=== PATIENT | male | born 1950 | race Caucasian/White ===

== ENCOUNTER → 2016-10-20 | Outpatient (CLI) | payer BC, OTHER | LOC: RAD 08:21 | PROVIDERS: ATTEND Urology | DX: C61 Malignant neoplasm of prostate (principal) | CPT/HCPCS: 78306; A9503; Q9969 ==

== ENCOUNTER → 2019-05-20 | Outpatient (CLI) | payer MEDICARE, BC | LOC: SP 09:01 | PROVIDERS: ATTEND Preventive Medicine Undersea and Hyperbaric Medicine | DX: E11.621 Type 2 diabetes mellitus with foot ulcer (principal); L97.522 Non-pressure chronic ulcer of other part of left foot with fat layer exposed | CPT/HCPCS: 93922; 93925 ==

== ENCOUNTER 2020-07-05 13:50 | Inpatient (IN) | payer MEDICARE, BC ==
--- NOTE | 2020-07-05 14:15 | ER Document Report ---
ED Medical Screen (RME) - General Stated Complaint: SORE ON LEFT FOOT Time Seen by Provider: 07/05/20 14:13 Primary Care Provider: KIMBERLY ZAZUETA DPM [Primary Care Provider] - Follow up as needed Notes: HPI: 69-year-old diabetic male who has been following with Dr. Zazueta regarding a wound on the left heel over the last 3 to 4 weeks. Patient had the area incised and opened 3 weeks ago. They felt like the infection was getting better but ov er the last several days after seeing Dr. Zazueat he was referred back to the ER for evaluation because apparently they feel the wound is becoming more infected and worse. He has had subjective fevers at home PHYSICAL EXAMINATION: There does appear to be an ulcerative type wound on the heel of the left foot with some surrounding erythema I have greeted and performed a rapid initial assessment of this patient. A comprehensive ED assessment and evaluation of the patient, analysis of test results and completion of medical decision making process will be conducted by an additional ED providers. TRAVEL OUTSIDE OF THE [place] IN LAST 30 DAYS: No Doctor's Discharge - Discharge Referrals: KIMBERLY ZAZUETA DPM [Primary Care Provider] - Follow up as needed
[2020-07-05 15:53] LABS: ABSOLUTE BASOPHILS # (AUTO) 0.1 10^3/uL (0.0-0.2); ABSOLUTE EOSINOPHILS # (AUTO) 0.1 10^3/uL (0.0-0.6); ABSOLUTE LYMPHOCYTES (AUTO) 1.6 10^3/uL (0.5-4.7); ABSOLUTE MONOCYTES (AUTO) 1.1 10^3/uL (0.1-1.4); ABSOLUTE NEUT (AUTO) 12.3 10^3/uL (1.7-8.2); BASOPHILS % (AUTO) 0.5 % (0-2); EOSINOPHILS % (AUTO) 0.5 % (0-6); HEMATOCRIT 35.4 % (37.9-51.0); HEMOGLOBIN 11.4 g/dL (13.5-17.0); LYMPHOCYTES % (AUTO) 10.8 % (13-45); MEAN CORPUSCULAR HEMOGLOBIN 27.4 pg (27.0-33.4); MEAN CORPUSCULAR HGB CONC 32.3 g/dL (32.0-36.0); MEAN CORPUSCULAR VOLUME 85 fl (80-97); PLATELET COUNT 402 10^3/uL (150-450); RED BLOOD COUNT 4.16 10^6/uL (4.35-5.55); RED CELL DISTRIBUTION WIDTH 14.5 % (11.5-14.0); SEGMENTED NEUTROPHILS % (AUTO) 81.2 % (42-78); TOTAL CELLS COUNTED % (AUTO) 100 %; WHITE BLOOD COUNT 15.1 10^3/uL (4.0-10.5)
--- NOTE | 2020-07-05 15:56 | RADIOLOGY REPORT (SQ) ---
EXAM DESCRIPTION: FOOT LEFT COMPLETE IMAGES COMPLETED DATE/TIME: 07/05/2020 3:18 pm REASON FOR STUDY: left heel wound COMPARISON: None. NUMBER OF VIEWS: Three views. TECHNIQUE: AP, lateral and oblique radiographic images acquired of the left foot. LIMITATIONS: None. FINDINGS: MINERALIZATION: Normal. BONES: Chronic fracture of the 2nd metatarsal. There is no acute fracture, dislocation or erosion. JOINTS: The normal tarsometatarsal alignment is preserved. SOFT TISSUES: No radiopaque foreign body or subcutaneous emphysema. OTHER: Enthesophytes at the calcaneal insertions of the plantar fascia and Achilles tendon. The Achi lles tendon silhouette is intact. IMPRESSION: No acute osseous abnormality of the left foot. TECHNICAL DOCUMENTATION: JOB ID: [id number] 2010 [employer]- All Rights Reserved Reading location - IP/workstation name: [email or web address]
[2020-07-05 16:13] LABS: ALKALINE PHOSPHATASE 102 U/L (38-126); ANION GAP 12 (5-19); ASPARTATE AMINO TRANSFERASE 23 U/L (17-59); BILIRUBIN,DIRECT 0.3 mg/dL (0.0-0.4); BILIRUBIN,TOTAL 0.5 mg/dL (0.2-1.3); BLOOD UREA NITROGEN 35 mg/dL (7-20); C-REACTIVE PROTEIN 50.2 mg/L (<10.0); CALCIUM 9.2 mg/dL (8.4-10.2); CARBON DIOXIDE 23 mmol/L (22-30); CHLORIDE 93 mmol/L (98-107); POTASSIUM 4.9 mmol/L (3.6-5.0); TOTAL PROTEIN 7.6 g/dL (6.3-8.2)
[2020-07-05 16:20] LABS: GLUCOSE 505 mg/dL (75-110)
[2020-07-05 16:48] LABS: ERYTHROCYTE SEDIMENTATION RATE 99 mm/hr (0-20)
[2020-07-05] MEDS ORDERED: NORMAL SALINE 1000 ML 1,000 ML IV ONE (20:50)
[2020-07-05] MEDS ORDERED: ONDANSETRON HCL INJ/PF 4 MG/2 ML SDV IV ONE (20:50)
[2020-07-05] MEDS ORDERED: LINEZOLID 600 MG/300 ML RTUPB IV ONE (20:54)
[2020-07-05] MEDS ORDERED: INSULIN LISPRO 100 UNIT/ML 3 ML VIAL SUBCUT ONE (20:55)
--- NOTE | 2020-07-05 21:07 | ER Document Report ---
ED General - General Chief Complaint: Abscess Stated Complaint: SORE ON LEFT FOOT Time Seen by Provider: 07/05/20 14:13 Primary Care Provider: KIMBERLY ZAZUETA DPM [Primary Care Provider] - Follow up as needed Notes: 69-year-old male history of hypertension hyperlipidemia diabetes prostate cancer in remission presents with approximately 1 week of worsening left foot wound. Patient says he noticed the left heel ulcer approximately 3 to 4 weeks ago and started seeing Dr. Zazueta. Had surgical debridement in his office approximately 3 weeks ago and has been on antibiotics (unknown which) for the past [address] Zazueta again today and was told that he needs to go to the hospital for IV antibiotics and possible debridement because ulcer was worsening and was infected despite antibiotics. Patient had endorsed subjective fever in triage, but at time of my evaluation says that he "gets hot sometimes "and that has been the case for the past several years without any acute change. Patient has chronic dry cough for many years although also without any acute change recently and sometimes vomits when he coughs and had one episode of emesis in the ED after coughing, but this is patient's normal pattern for the past several years which also endorses. Patient endorses increasing pain at ulcer. Denies any symptoms elsewhere, headache, abdominal pain, objective fever, shortness of breath, chest pain, dizziness, recent hospitalizations TRAVEL OUTSIDE OF THE [place] IN LAST 30 DAYS: No - Related Data Allergies/Adverse Reactions: No Known Allergies Allergy (Verified 07/05/20 17:39) Home Medications: pt states he uses relo on baer Past Medical History - General Information source: Patient, Relative, [facility] Records - Social History Smoking Status: Never Smoker Chew tobacco use (# tins/day): No Frequency of alcohol use: None Drug Abuse: None Family History: Reviewed & Not Pertinent Patient has homicidal ideation: No Review of Systems - Review of Systems Notes: REVIEW OF SYSTEMS: CONSTITUTIONAL : Denies fever, weight loss EENT: Denies recent cold symptoms, denies throat pain CARDIOVASCULAR: Denies chest pain, LEVON RESPIRATORY: Denies sputum, denies shortness of breath. GASTROINTESTINAL: Denies abdominal pain, bowel changes GENITOURINARY: Denies difficulty urinating, painful urination. MUSCULOSKELETAL: Denies neck pain, back pain. SKIN: + rash or skin lesions. HEMATOLOGIC : Denies easy bruising or bleeding. LYMPHATIC: Denies swollen, enlarged glands. NEUROLOGICAL: Denies headache, denies change in gait. PSYCHIATRIC: Denies anxiety or stress or depression. Physical Exam - Vital signs Vitals: Temp Pulse Resp BP Pulse Ox 98.5 F 80 16 170/91 H 99 07/05/20 14:15 07/05/20 14:15 07/05/20 14:15 07/05/20 14:15 07/05/20 14:15 - Notes Notes: PHYSICAL EXAMINATION: GENERAL: Comfortable appearing elderly man lying in bed in no acute distress HEAD: Atraumatic, normocephalic. EYES: Pupils equal round and appropriate constriction, sclera anicteric, conjunctiva are normal. ENT: nares patent, mildly dry mucous membranes. NECK/BACK: Normal range of motion, supple without lymphadenopathy, no midline spinal tenderness or deformity LUNGS: Breath sounds clear to auscultation bilaterally and equal. No wheezes rales or rhonchi. HEART: Regular rate and rhythm with faint systolic murmur ABDOMEN: Soft, nontender, no guarding, no masses, no CVAT EXTREMITIES: Normal range of motion, no pitting or edema. No cyanosis. NEUROLOGICAL: Awake, alert, conversing appropriately, moves all extremities spontaneously. PSYCH: Normal mood, normal affect. SKIN: Warm, Dry, DP pulses palpable bilaterally with 2-second capillary refill bilaterally, approximately 3 cm white heel eschar on left foot with surrounding erythema abnormal warmth spreading to lateral surface of foot Course - Re-evaluation Re-evalutation: 07/05/20 21:17 Patient with infected diabetic left heel ulcer with failed outpatient p.o. antibiotic trial of 2 weeks, he will evaluated by invasive cardiologist who recommends debridement and IV antibiotics as per patient and , signs of infection on exam. No signs of abscess but will have surgical evaluation for likely debridement, rule out osteomyelitis. Patient's glucose elevated but no altered mental status and no elevated anion gap, will treat for hyperglycemia. Patient's creatinine elevated but unknown baseline, last measurement was normal but 5 years ago, and patient and deny any known renal history. Ordered linezolid because of patient's renal function and have presented patient to hospitalist Dr. Selby. 07/05/20 22:03 Patient accepted to medical floor by Dr. Selby. - Vital Signs Vital signs: Temp Pulse Resp BP Pulse Ox 99.2 F 80 19 175/84 H 97 07/05/20 17:42 07/05/20 14:15 07/05/20 18:02 07/05/20 18:02 07/05/20 18:02 - Laboratory Result Diagrams: 07/05/20 15:33 07/05/20 15:33 Laboratory results interpreted by me: 07/05/20 07/05/20 15:33 15:33 WBC 15.1 H RBC 4.16 L Hgb 11.4 L Hct 35.4 L RDW 14.5 H Lymph % (Auto) 10.8 L Absolute Neuts (auto) 12.3 H Seg Neutrophils % 81.2 H ESR 99 H Sodium 128.2 L Chloride 93 L BUN 35 H Creatinine 2.31 H Est GFR ( Amer) 34 L Est GFR (MDRD) Non-Af 28 L Glucose 505 H* C-Reactive Protein 50.2 H Discharge - Discharge Clinical Impression: Hyperglycemia, Renal insufficiency Foot ulcer, left Qualifiers: Non-pressure ulcer stage: with other severity Qualified Code(s): L97.528 - Non- pressure chronic ulcer of other part of left foot with other specified severity Disposition: ADMITTED INPATIENT [facility] Medical [facility] Referrals: KIMBERLY ZAZUETA DPM [Primary Care Provider] - Follow up as needed
[2020-07-05] MEDS ORDERED: ONDANSETRON HCL INJ/PF 4 MG/2 ML SDV IV PRN (21:50)
[2020-07-05] MEDS ORDERED: ACETAMINOPHEN 325 MG TABLET PO PRN (21:50)
[2020-07-05] MEDS ORDERED: RINGERS SOLUTION,LACTATED 1,000 ML IV PRN (21:50)
[2020-07-05] MEDS ORDERED: DEXTROSE 50%-WATER 25 GM/50 ML DISP.SYRIN IV PRN ×2 (22:00)
[2020-07-05] MEDS ORDERED: DEXTROSE 40% GEL 15 GM TUBE PO PRN ×2 (22:00)
[2020-07-05] MEDS ORDERED: VANCOMYCIN HCL 0 MG in DEXTROSE 5%-WATER 250 ML IV NR (22:00)
[2020-07-05] MEDS ORDERED: GLUCAGON,HUMAN RECOMB 1 MG INJ IM PRN (22:00)
--- NOTE | 2020-07-05 22:03 | PDOC H&P ---
History of Present Illness Admission Date/PCP: KIMBERLY MONROY DPM Patient complains of: left heal ulcer and pain History of Present Illness: FREDDY CANTU is a 69 year old male with a history of type 2 diabetes, hypertension, history of prostate cancer now presents with 3 weeks duration of nonhealing wound on the left heel area. Patient was initially seen by p odiatrist and was being followed at wound care clinic and he was also treated with oral antibiotic as outpatient but the fail to improve and the past few days it started worsening. This morning patient was seen at wound clinic and he was sent to the ER for possible IV antibiotic treatment. He reports 8/10 intensity dull aching pain on his lower extremity which is aggravated by pressure and walking. He denies any fever, nausea, vomiting. He also denies any chest pain, shortness of breath, abdominal pain, change in his bowel or urinary habits. He denies any recent sick contact history. Social History Information Source: Patient Lives with: Family Smoking Status: Never Smoker Electronic Cigarette use?: No Hx Recreational Drug Use: No Drugs: None - Advance Directive Resuscitation Status: Full Code Family History Family History: Reviewed & Not Pertinent Parental Family History Reviewed: Yes Children Family History Reviewed: Yes Sibling(s) Family History Reviewed.: Yes Medication/Allergy Allergies/Adverse Reactions: No Known Allergies Allergy (Verified 07/05/20 17:39) Review of Systems Constitutional: ABSENT: chills, fever(s), headache(s), weight gain, weight loss Eyes: ABSENT: visual disturbances Ears: ABSENT: hearing changes Cardiovascular: ABSENT: chest pain, dyspnea on exertion, edema, orthropnea, palpitations Respiratory: ABSENT: cough, hemoptysis Gastrointestinal: ABSENT: abdominal pain, constipation, diarrhea, hematemesis, hematochezia, nausea, vomiting Genitourinary: ABSENT: dysuria, hematuria Musculoskeletal: ABSENT: joint swelling Integumentary: ABSENT: rash, wounds Neurological: ABSENT: abnormal gait, abnormal speech, confusion, dizziness, focal weakness, syncope Psychiatric: ABSENT: anxiety, depression, homidical ideation, suicidal ideation Endocrine: ABSENT: cold intolerance, heat intolerance, polydipsia, polyuria Hematologic/Lymphatic: ABSENT: easy bleeding, easy bruising Physical Exam Vital Signs: Temp Pulse Resp BP Pulse Ox 99.2 F 80 19 175/84 H 97 07/05/20 17:42 07/05/20 14:15 07/05/20 18:02 07/05/20 18:02 07/05/20 18:02 Intake & Output 07/04/20 07/05/20 07/06/20 06:59 06:59 06:59 Weight 78.5 kg Additional comments: GENERAL APPEARANCE: Alert and oriented x3, in no acute distress HEENT: Normocephalic and atraumatic. No scleral icterus. Moist oral mucosa NECK: Supple. No lymphadenopathy or tenderness. No JVD CHEST: Symmetric. Nontender to palpation. LUNGS: Clear with good air entry bilaterally. No wheezing or crackles HEART: Regular rate and rhythm with normal S1 and S2. No murmurs, gallops, or rubs. ABDOMEN: Flat, soft, active bowel sounds, no direct or rebound tenderness. No organomegaly detected. EXTREMITIES: No cyanosis, clubbing, or edema. There is a 1 x 1 cm wound on the left heel. There is surrounding purulence area with hyperemia, differential warmth and tenderness. MUSCULOSKELETAL: No deformity, atrophy or swelling noted PSYCHIATRIC: Recent and remote memory is intact. Appropriate mood and affect. SKIN: Warm, dry, and well perfused. No lesions or rashes are noted. NEUROLOGIC: No focal sensory or motor deficits are noted. Results Laboratory Results: 07/05/20 15:33 07/05/20 15:33 07/05/20 07/05/20 07/05/20 15:33 15:33 15:33 WBC 15.1 H RBC 4.16 L Hgb 11.4 L Hct 35.4 L MCV 85 MCH 27.4 MCHC 32.3 RDW 14.5 H Plt Count 402 Seg Neutrophils % 81.2 H Sodium 128.2 L Potassium 4.9 Chloride 93 L Carbon Dioxide 23 Anion Gap 12 BUN 35 H Creatinine 2.31 H Est GFR ( Amer) 34 L Glucose 505 H* Lactic Acid 1.1 Calcium 9.2 Total Bilirubin 0.5 AST 23 Alkaline Phosphatase 102 C-Reactive Protein 50.2 H Total Protein 7.6 Albumin 4.0 Impressions: Foot X-Ray 07/05/20 14:14 IMPRESSION: No acute osseous abnormality of the left foot. Assessment and Plan - Diagnosis (1) Foot ulcer, left Qualifiers: Non-pressure ulcer stage: with other severity Qualified Code(s): L97.528 - Non-pressure chronic ulcer of other part of left foot with other specified severity Is this a current diagnosis for this admission?: Yes Plan: Presents with a nonhealing left heel wound with surrounding purulent cellulitis Failed outpatient treatments Has no systemic signs of toxicity ESR and C-reactive protein elevated X-ray showed no osseous abnormality Wound consult has been placed Continue vancomycin renally dosed with cefepime Follow-up with blood culture (2) Type 2 diabetes mellitus with hyperglycemia Is this a current diagnosis for this admission?: Yes Plan: Random blood sugar was 505 on presentation Has no anion gap Started him on Lantus 45 units nightly Sliding-scale insulin, hypoglycemia protocol with Accu-Chek (3) Renal insufficiency Is this a current diagnosis for this admission?: Yes Plan: Has no baseline to compare it with Could be CKD due to hypertension and diabetes Started him on gentle hydration Renally dose medications and avoid nephrotoxic's Monitor renal indicis (4) Hypertension Is this a current diagnosis for this admission?: Yes Plan: Blood pressure is within acceptable range Continue home medications - Time Time Spent with patient: 35 or more minutes Total Critical Time (Minutes): 45 Medications reviewed and adjusted accordingly: Yes Anticipated Discharge Disposition: Home, Self Care Anticipated Discharge Timeframe: within 72 hours - Inpatient Certification Based on my medical assessment, after consideration of the patient's comorbidities, presenting symptoms, or acuity I expect that the services needed warrant INPATIENT care.: Yes I certify that my determination is in accordance with my understanding of Medicare's requirements for reasonable and necessary INPATIENT services [42 CFR 412.3e].: Yes Medical Necessity: Failure to Improve With Outpatient Therapy, Need Close Monitoring Due to Risk of Patient Decompensation, Need For IV Fluids, Need for IV Antibiotics, Risk of Complication if Not Cared For in Hospital Post Hospital Care: D/C or Transfer Summary
[2020-07-05] MEDS ORDERED: VANCOMYCIN HCL INJ 1000 MG VIAL IV PRN (22:14)
[2020-07-05] MEDS ORDERED: VANCOMYCIN HCL 1,500 MG in DEXTROSE 5%-WATER 250 ML IV ONE (22:15)
[2020-07-05] MEDS: INSULIN REG, HUMAN 100 UNIT/ML 3 ML VIAL (PYX) SUBCUT SCH (22:26)
[2020-07-05] MEDS: FAMOTIDINE 20 MG TABLET PO SCH (22:34)
[2020-07-05] MEDS: HEPARIN SOD (PORCINE) 5,000 UNIT/ML 1 ML VIAL SUBCUT SCH (22:34)
[2020-07-05] MEDS: INSULIN GLARGINE,HUM.REC.ANLOG 1,000 UNIT/10 ML VIAL SUBCUT SCH (22:34)
[2020-07-05] MEDS: CEFEPIME 1 GM/D5W RTU 1 GM/50 ML RTUPB IV SCH (23:42)
[2020-07-06] MEDS ORDERED: VANCOMYCIN HCL INJ 1000 MG VIAL ONE (00:31)
[2020-07-06] MEDS ORDERED: VANCOMYCIN HCL INJ 500 MG VIAL ONE (00:31)
[2020-07-06] MEDS: RINGERS SOLUTION,LACTATED 1,000 ML IV PRN ×2 (02:45→21:24)
[2020-07-06] MEDS: HEPARIN SOD (PORCINE) 5,000 UNIT/ML 1 ML VIAL SUBCUT SCH ×3 (05:10→21:17)
[2020-07-06 06:17] LABS: ABSOLUTE BASOPHILS # (AUTO) 0.1 10^3/uL (0.0-0.2); ABSOLUTE EOSINOPHILS # (AUTO) 0.1 10^3/uL (0.0-0.6); ABSOLUTE LYMPHOCYTES (AUTO) 2.3 10^3/uL (0.5-4.7); ABSOLUTE MONOCYTES (AUTO) 1.1 10^3/uL (0.1-1.4); ABSOLUTE NEUT (AUTO) 9.6 10^3/uL (1.7-8.2); BASOPHILS % (AUTO) 0.6 % (0-2); HEMATOCRIT 29.9 % (37.9-51.0); LYMPHOCYTES % (AUTO) 17.3 % (13-45); MEAN CORPUSCULAR HEMOGLOBIN 27.5 pg (27.0-33.4); MEAN CORPUSCULAR HGB CONC 33.4 g/dL (32.0-36.0); MEAN CORPUSCULAR VOLUME 82 fl (80-97); MONOCYTES % (AUTO) 8.4 % (3-13); PLATELET COUNT 317 10^3/uL (150-450); RED BLOOD COUNT 3.62 10^6/uL (4.35-5.55); RED CELL DISTRIBUTION WIDTH 14.3 % (11.5-14.0); SEGMENTED NEUTROPHILS % (AUTO) 72.7 % (42-78); TOTAL CELLS COUNTED % (AUTO) 100 %; WHITE BLOOD COUNT 13.1 10^3/uL (4.0-10.5)
[2020-07-06 06:37] LABS: ANION GAP 9 (5-19); BLOOD UREA NITROGEN 30 mg/dL (7-20); CALCIUM 8.8 mg/dL (8.4-10.2); CARBON DIOXIDE 23 mmol/L (22-30); CHLORIDE 102 mmol/L (98-107); GLUCOSE 179 mg/dL (75-110); POTASSIUM 4.2 mmol/L (3.6-5.0)
[2020-07-06] MEDS: INSULIN REG, HUMAN 100 UNIT/ML 3 ML VIAL (PYX) SUBCUT SCH ×4 (08:57→21:18)
[2020-07-06] MEDS: FAMOTIDINE 20 MG TABLET PO SCH ×2 (09:58→21:16)
[2020-07-06] MEDS: CEFEPIME 1 GM/D5W RTU 1 GM/50 ML RTUPB IV SCH ×2 (09:58→21:28)
[2020-07-06] MEDS: VANCOMYCIN HCL 1,000 MG in DEXTROSE 5%-WATER 250 ML IV SCH (09:59)
--- NOTE | 2020-07-06 14:17 | PDOC PROGRESS REPORT ---
Subjective Date:: 07/06/20 Subjective:: Patient is resting comfortably in bed. He has no specific complaints this jose carlos luke. Reason For Visit: PURULENT CELLULITIS,DIABETIC FOOT ULCER, Physical Exam Vital Signs: Temp Pulse Resp BP Pulse Ox 97.9 F 65 18 198/81 H 100 07/06/20 11:04 07/06/20 11:04 07/06/20 11:04 07/06/20 11:04 07/06/20 11:04 Intake & Output 07/05/20 07/06/20 07/07/20 06:59 06:59 06:59 Intake Total 1350 Balance 1350 Weight 75.4 kg 75.4 kg General appearance: PRESENT: no acute distress, cooperative, well-developed Head exam: PRESENT: atraumatic, normocephalic Eye exam: PRESENT: conjunctiva pink, EOMI. ABSENT: scleral icterus Ear exam: PRESENT: normal external ear exam. ABSENT: bleeding, drainage Respiratory exam: PRESENT: clear to auscultation [place], symmetrical, unlabored. ABSENT: rales, rhonchi, tachypnea, wheezes Cardiovascular exam: PRESENT: RRR, +S1, +S2. ABSENT: bradycardia, diastolic murmur, irregular rhythm, systolic murmur, tachycardia GI/Abdominal exam: PRESENT: normal bowel sounds, soft. ABSENT: distended, guarding, tenderness Rectal exam: PRESENT: deferred Gentrourinary exam: ABSENT: indwelling catheter Extremities exam: PRESENT: other - The patient has a heel ulcer with callus. Patient palpated centimeters. The discharge can be expressed with gentle pressure over the discolored area.. ABSENT: pedal edema Musculoskeletal exam: PRESENT: ambulatory. ABSENT: deformity, dislocation Neurological exam: PRESENT: alert, awake, oriented to person, oriented to place, oriented to time, oriented to situation, CN II-XII grossly intact. ABSENT: altered Psychiatric exam: PRESENT: appropriate affect. ABSENT: agitated, anxious Focused psych exam: ABSENT: delusional, paranoid, restlessness Results Laboratory Results: 07/06/20 05:07 07/06/20 05:07 07/05/20 07/05/20 07/05/20 15:33 15:33 15:33 WBC 15.1 H RBC 4.16 L Hgb 11.4 L Hct 35.4 L MCV 85 MCH 27.4 MCHC 32.3 RDW 14.5 H Plt Count 402 Seg Neutrophils % 81.2 H Sodium 128.2 L Potassium 4.9 Chloride 93 L Carbon Dioxide 23 Anion Gap 12 BUN 35 H Creatinine 2.31 H Est GFR ( Amer) 34 L Glucose 505 H* Lactic Acid 1.1 Calcium 9.2 Total Bilirubin 0.5 AST 23 Alkaline Phosphatase 102 C-Reactive Protein 50.2 H Total Protein 7.6 Albumin 4.0 07/06/20 07/06/20 05:07 05:07 WBC 13.1 H RBC 3.62 L Hgb 10.0 L Hct 29.9 L MCV 82 MCH 27.5 MCHC 33.4 RDW 14.3 H Plt Count 317 Seg Neutrophils % 72.7 Sodium 134.2 L Potassium 4.2 Chloride 102 Carbon Dioxide 23 Anion Gap 9 BUN 30 H Creatinine 2.24 H Est GFR ( Amer) 36 L Glucose 179 H Lactic Acid Calcium 8.8 Total Bilirubin AST Alkaline Phosphatase C-Reactive Protein Total Protein Albumin Impressions: Foot X-Ray 07/05/20 14:14 IMPRESSION: No acute osseous abnormality of the left foot. Assessment and Plan - Diagnosis (1) Foot ulcer, left Qualifiers: Non-pressure ulcer stage: with other severity Qualified Code(s): L97.528 - Non-pressure chronic ulcer of other part of left foot with other specified severity Is this a current diagnosis for this admission?: Yes (2) Type 2 diabetes mellitus with hyperglycemia Qualifiers: Diabetes mellitus intermediate card tender insulin use: with intermediate card tender use Qualified Code(s): E11.65 - Type 2 diabetes mellitus with hyperglycemia; Z79.4 - snf (current) use of insulin Is this a current diagnosis for this admission?: Yes (3) Renal insufficiency Is this a current diagnosis for this admission?: Yes (4) Hypertension Qualifiers: Hypertension type: essential hypertension Qualified Code(s): I10 - Essential (primary) hypertension Is this a current diagnosis for this admission?: Yes - Plan Summary Summary: 07/06/2020 The also has a callused portion and then there is a small tunnel to a subcutaneous collection purulent discharge. You can milk discharge from this area that is expressible at the side of the ulcer. We will likely need to unroofed this area, aggressively cleanse and then use medicated dressings. Hypertension-continue the valsartan with hydrochlorothiazide Diabetes-Lantus started at 50 units. Metformin 1 g twice daily and glimepiride continued. Continue Accu-Cheks and sliding scale. Renal insufficiency-continue lactated Ringer's and recheck labs tomorrow. - Time Time Spent with patient: 15-24 minutes Medications reviewed and adjusted accordingly: Yes Anticipated Discharge Disposition: Home with Home Health Anticipated Discharge Timeframe: within 72 hours
[2020-07-06] MEDS ORDERED: VALSARTAN 80 MG TABLET PO ONE (21:00)
[2020-07-06] MEDS: VALSARTAN 160 MG TABLET PO SCH (21:15)
[2020-07-06] MEDS: HYDROCHLOROTHIAZIDE 12.5 MG TABLET PO SCH (21:16)
[2020-07-06] MEDS: INSULIN GLARGINE,HUM.REC.ANLOG 1,000 UNIT/10 ML VIAL SUBCUT SCH (21:17)
[2020-07-06] MEDS ORDERED: [UNRECOGNIZED DRUG - OTHER] SUBCUT SCH (22:00)
[2020-07-06] MEDS ORDERED: INSULIN GLARGINE HUM REC ANLOG 300 UNIT/ML SUBCUT SCH (22:00)
[2020-07-06] MEDS ORDERED: INSULN SUBCUT SCH (22:00)
--- NOTE | 2020-07-06 23:51 | CDI QUERY ---
CDI Query CDI Review: We are seeking further clarification of documentation to reflect the severity of illness of your patient. Noted in the H&P: (3) Renal insufficiency Is this a current diagnosis for this admission?: Yes Plan: Has no baseline to compare it with Could be CKD due to hypertension and diabetes Started him on gentle hydration Renally dose medications and avoid nephrotoxic's Monitor renal indicis BUN/ CR: 35 /2.31 GFR: 28 Glucose: 505 Per Progress Notes: Renal insufficiency-continue lactated Ringer's and recheck labs tomorrow. Based on your medical judgement, can you further clarify in the Progress Notes and carry through the Discharge Summary: Acute Kidney Injury Acute Kidney Injury 2/2 to ATN Acute on Chronic Renal Failure Chronic Kidney Disease (Stage, if known) Other (please specify) None of the above / Not applicable Thank you for your consideration. SAUL PenaN RN Clinical [employer] Supervisor Physician Advisor
--- NOTE | 2020-07-07 00:03 | CDI QUERY ---
CDI Query CDI Review: We are seeking further clarification of documentation to reflect the severity of illness of your patient. Per ED Notes: Patient with infected diabetic left heel ulcer with failed outpatient p.o. antibiotic trial of 2 weeks, Per H&P: (1) Foot ulcer, left Qualifiers: Non-pressure ulcer stage: with other severity Qualified Code(s): L97.528 - Non-pressure chronic ulcer of other part of left foot with other specified severity Is this a current diagnosis for this admission?: Yes Plan: Presents with a nonhealing left heel wound with surrounding purulent cellulitis Failed outpatient treatments Has no systemic signs of toxicity ESR and C-reactive protein elevated X-ray showed no osseous abnormality Wound consult has been placed Continue vancomycin renally dosed with cefepime Follow-up with blood culture (2) Type 2 diabetes mellitus with hyperglycemia Is this a current diagnosis for this admission?: Yes Plan: Random blood sugar was 505 on presentation Per Progress Notes: Reason For Visit: PURULENT CELLULITIS,DIABETIC FOOT ULCER, Based on your medical judgement, can you further clarify in the Progress Notes and carry through the Discharge Summary: Non-healing wound and cellulitis 2/2 to diabetes Non-healing wound and cellulitis NOT 2/2 to diabetes Unable to determine Other Thank you for your consideration. LINDA Pena RN Clinical Tax Accountant Physician Advisor
[2020-07-07] MEDS: HEPARIN SOD (PORCINE) 5,000 UNIT/ML 1 ML VIAL SUBCUT SCH ×3 (05:36→22:24)
[2020-07-07 06:26] LABS: ABSOLUTE BASOPHILS # (AUTO) 0.1 10^3/uL (0.0-0.2); ABSOLUTE EOSINOPHILS # (AUTO) 0.2 10^3/uL (0.0-0.6); ABSOLUTE LYMPHOCYTES (AUTO) 3.1 10^3/uL (0.5-4.7); ABSOLUTE MONOCYTES (AUTO) 1.3 10^3/uL (0.1-1.4); ABSOLUTE NEUT (AUTO) 8.4 10^3/uL (1.7-8.2); BASOPHILS % (AUTO) 0.6 % (0-2); EOSINOPHILS % (AUTO) 1.5 % (0-6); HEMATOCRIT 31.2 % (37.9-51.0); HEMOGLOBIN 10.5 g/dL (13.5-17.0); LYMPHOCYTES % (AUTO) 23.4 % (13-45); MEAN CORPUSCULAR HEMOGLOBIN 27.6 pg (27.0-33.4); MEAN CORPUSCULAR HGB CONC 33.5 g/dL (32.0-36.0); MEAN CORPUSCULAR VOLUME 82 fl (80-97); PLATELET COUNT 335 10^3/uL (150-450); RED BLOOD COUNT 3.78 10^6/uL (4.35-5.55); RED CELL DISTRIBUTION WIDTH 14.3 % (11.5-14.0); SEGMENTED NEUTROPHILS % (AUTO) 64.5 % (42-78); TOTAL CELLS COUNTED % (AUTO) 100 %; WHITE BLOOD COUNT 13.1 10^3/uL (4.0-10.5)
[2020-07-07] MEDS: RINGERS SOLUTION,LACTATED 1,000 ML IV PRN ×2 (06:45→22:25)
[2020-07-07 06:46] LABS: ALBUMIN 3.2 g/dL (3.5-5.0); ANION GAP 9 (5-19); BLOOD UREA NITROGEN 26 mg/dL (7-20); CARBON DIOXIDE 24 mmol/L (22-30); CHLORIDE 103 mmol/L (98-107); GLUCOSE 84 mg/dL (75-110); PHOSPHORUS 3.8 mg/dL (2.5-4.5); POTASSIUM 4.2 mmol/L (3.6-5.0)
[2020-07-07] MEDS: INSULIN REG, HUMAN 100 UNIT/ML 3 ML VIAL (PYX) SUBCUT SCH ×4 (07:49→22:32)
[2020-07-07] MEDS: METFORMIN HCL 500 MG TABLET PO SCH ×2 (08:13→16:53)
[2020-07-07] MEDS: OXYCODONE-ACETAMINOPHEN 5-325 MG TABLET PO PRN ×2 (08:14→22:31)
[2020-07-07] MEDS: HYDROCHLOROTHIAZIDE 12.5 MG TABLET PO SCH (09:51)
[2020-07-07] MEDS: VALSARTAN 160 MG TABLET PO SCH (09:51)
[2020-07-07] MEDS: FAMOTIDINE 20 MG TABLET PO SCH ×2 (09:51→22:25)
[2020-07-07] MEDS: CEFEPIME 1 GM/D5W RTU 1 GM/50 ML RTUPB IV SCH ×2 (09:52→22:24)
[2020-07-07] MEDS: GLIMEPIRIDE 4 MG TABLET PO SCH (09:52)
[2020-07-07] MEDS ORDERED: (PENDING PHARMACY ID) (Valsartan/Hydrochlorothiazide [Valsartan-Hctz 160-12.5 Mg Tab] 1 EA PO SCH (10:00)
[2020-07-07] MEDS: VANCOMYCIN HCL 1,000 MG in DEXTROSE 5%-WATER 250 ML IV SCH (11:06)
--- NOTE | 2020-07-07 12:05 | PDOC PROGRESS REPORT ---
Subjective Date:: 07/07/20 Subjective:: Patient does feel like there is some swelling. There does seem to be a slight e xtension of discoloration towards the lateral heel. Blood pressures have been elevated. Reason For Visit: PURULENT CELLULITIS,DIABETIC FOOT ULCER, Physical Exam Vital Signs: Temp Pulse Resp BP Pulse Ox 98.6 F 86 16 185/89 H 98 07/07/20 08:19 07/07/20 07:45 07/07/20 07:45 07/07/20 07:45 07/07/20 07:45 Intake & Output 07/06/20 07/07/20 07/08/20 06:59 06:59 06:59 Intake Total 1350 3888 50 Output Total 1975 Balance 1350 1913 50 Weight 75.4 kg 75.5 kg General appearance: PRESENT: no acute distress, cooperative, well-developed Head exam: PRESENT: atraumatic, normocephalic Eye exam: PRESENT: conjunctiva pink. ABSENT: scleral icterus Ear exam: PRESENT: normal external ear exam. ABSENT: bleeding, drainage Mouth exam: PRESENT: moist, tongue midline Respiratory exam: PRESENT: clear to auscultation keyana, symmetrical, unlabored. ABSENT: accessory muscle use, rales, rhonchi, tachypnea, wheezes Cardiovascular exam: PRESENT: RRR, +S1, +S2. ABSENT: bradycardia, diastolic murmur, irregular rhythm, systolic murmur, tachycardia GI/Abdominal exam: PRESENT: normal bowel sounds, soft. ABSENT: tenderness Rectal exam: PRESENT: deferred Gentrourinary exam: ABSENT: indwelling catheter Extremities exam: ABSENT: pedal edema Musculoskeletal exam: PRESENT: dislocation - Across the heel. ABSENT: deformity, normal inspection - Ulceration on the left heel Neurological exam: PRESENT: alert, awake, oriented to person, oriented to place, oriented to time, oriented to situation, CN II-XII grossly intact. ABSENT: altered Psychiatric exam: PRESENT: appropriate affect. ABSENT: agitated, anxious Focused psych exam: ABSENT: delusional, paranoid, restlessness Skin exam: PRESENT: other - Discoloration on the heel as noted above Results Laboratory Results: 07/07/20 05:53 07/07/20 05:53 07/07/20 07/07/20 05:53 05:53 WBC 13.1 H RBC 3.78 L Hgb 10.5 L Hct 31.2 L MCV 82 MCH 27.6 MCHC 33.5 RDW 14.3 H Plt Count 335 Seg Neutrophils % 64.5 Sodium 135.7 L Potassium 4.2 Chloride 103 Carbon Dioxide 24 Anion Gap 9 BUN 26 H Creatinine 2.20 H Est GFR ( Amer) 36 L Glucose 84 Calcium 9.0 Phosphorus 3.8 Albumin 3.2 L Impressions: Foot X-Ray 07/05/20 14:14 IMPRESSION: No acute osseous abnormality of the left foot. Assessment and Plan - Diagnosis (1) Type 2 diabetes mellitus with hyperglycemia Qualifiers: Diabetes mellitus long term care social worker insulin use: with nursing home use Qualified Code (s): E11.65 - Type 2 diabetes mellitus with hyperglycemia; Z79.4 - exterminator helper termite (current) use of insulin Is this a current diagnosis for this admission?: Yes (2) Hypertension Qualifiers: Hypertension type: essential hypertension Qualified Code(s): I10 - Essential (primary) hypertension Is this a current diagnosis for this admission?: Yes (3) Acute kidney injury Is this a current diagnosis for this admission?: Yes (4) Diabetic ulcer of left heel Qualifiers: Diabetes mellitus type: type 2 Non-pressure ulcer stage: unspecified non- pressure ulcer stage Qualified Code(s): E11.621 - Type 2 diabetes mellitus with foot ulcer; L97.429 - Non-pressure chronic ulcer of left heel and midfoot with unspecified severity Is this a current diagnosis for this admission?: Yes (5) Abscess of left heel Is this a current diagnosis for this admission?: Yes - Plan Summary Summary: 07/06/2020 The also has a callused portion and then there is a small tunnel to a subcutaneous collection purulent discharge. You can milk discharge from this area that is expressible at the side of the ulcer. We will likely need to unroo fed this area, aggressively cleanse and then use medicated dressings. Hypertension-continue the valsartan with hydrochlorothiazide Diabetes-Lantus started at 50 units. Metformin 1 g twice daily and glimepiride continued. Continue Accu-Cheks and sliding scale. Renal insufficiency-continue lactated Ringer's and recheck labs tomorrow. 07/07/2020 Acute kidney injury improving with hydration Diabetic ulcer of the left heel with abscess-MRI showed that the left calcaneus is not involved and there is no osteomyelitis. There is the abscess that drains to the skin. Continue antibiotics. We will look to unroofed the abscess in order for complete drainage and better treatment tomorrow Accu-Cheks still not well controlled. Increase Lantus. Hypertension-not well controlled on the patient's reported dose of medication. I have increased the valsartan to 320 mg daily, the hydrochlorothiazide is not 25 mg daily and I have added 10 mg amlodipine. There will also be hydralazine available by IV if needed. - Time Time Spent with patient: 15-24 minutes Medications reviewed and adjusted accordingly: Yes Anticipated Discharge Disposition: Home, Self Care Anticipated Discharge Timeframe: within 72 hours
[2020-07-07] MEDS ORDERED: AMLODIPINE BESYLATE 5 MG TABLET PO ONE (18:00)
--- NOTE | 2020-07-07 19:11 | RADIOLOGY REPORT (SQ) ---
EXAM DESCRIPTION: MRI LT LOWER EXTREMITY WITHOUT IMAGES COMPLETED DATE/TIME: 07/07/2020 2:11 pm COMPARISON: Left foot radiograph, 07/05/2020 TECHNIQUE: Multiplanar imaging of the left hind foot to include fat and fluid sensitive sequences. LIMITATIONS: None. FINDINGS: BONE MARROW: There is very mild bone marrow edema at the plantar calcaneal spur near the i nsertion of the plantar fascia with no significant T1 abnormality, consistent with edema rather than fracture or osteomyelitis. Otherwise normal bone marrow signal. SOFT TISSUES: Diffuse subcutaneous edema/ fluid in the calcaneal plantar soft tissues. There is foca l fluid at the skin surface measuring about 6 mm with direct drainage to the skin. Thickening and ab normal signal at the insertion of the plantar fascia. Subcutaneous edema in the midfoot. OTHER: No other significant finding. IMPRESSION: 1. Subcutaneous interstitial fluid in the plantar calcaneal soft tissues with draining abscess to the skin surface. No focal drainable fluid collection. No evidence of osteomyelitis. 2. Thickening of the plantar fascia consistent with plantar fasciitis. 3. Reactive bone marrow edema in the calcaneus. TECHNICAL DOCUMENTATION: JOB ID: [id number] [employer]- All Rights Reserved REASON FOR STUDY: Assess for osteomyelitis left heel Assess for osteomyelitis left heel. Debridement. Draining infection, redness, swelling, burning. S ymptoms for 3-4 weeks. Reading location - IP/workstation name: [email or web address]
[2020-07-07] MEDS ORDERED: HYDRALAZINE HCL INJ/PF 20 MG/1 ML SDV IV PRN (21:31)
[2020-07-07] MEDS ORDERED: INSULIN GLARGINE,HUM.REC.ANLOG 1,000 UNIT/10 ML VIAL (PYX) SUBCUT ONE (22:00)
[2020-07-08] MEDS: HEPARIN SOD (PORCINE) 5,000 UNIT/ML 1 ML VIAL SUBCUT SCH ×3 (05:54→21:30)
[2020-07-08] MEDS: OXYCODONE-ACETAMINOPHEN 5-325 MG TABLET PO PRN ×2 (05:56→21:30)
[2020-07-08 06:34] LABS: ABSOLUTE BASOPHILS # (AUTO) 0.1 10^3/uL (0.0-0.2); ABSOLUTE EOSINOPHILS # (AUTO) 0.2 10^3/uL (0.0-0.6); ABSOLUTE LYMPHOCYTES (AUTO) 2.6 10^3/uL (0.5-4.7); ABSOLUTE MONOCYTES (AUTO) 1.2 10^3/uL (0.1-1.4); ABSOLUTE NEUT (AUTO) 8.5 10^3/uL (1.7-8.2); BASOPHILS % (AUTO) 0.5 % (0-2); EOSINOPHILS % (AUTO) 1.3 % (0-6); HEMATOCRIT 30.1 % (37.9-51.0); HEMOGLOBIN 9.9 g/dL (13.5-17.0); LYMPHOCYTES % (AUTO) 20.9 % (13-45); MEAN CORPUSCULAR HEMOGLOBIN 27.6 pg (27.0-33.4); MEAN CORPUSCULAR VOLUME 84 fl (80-97); MONOCYTES % (AUTO) 9.5 % (3-13); PLATELET COUNT 332 10^3/uL (150-450); RED CELL DISTRIBUTION WIDTH 14.1 % (11.5-14.0); SEGMENTED NEUTROPHILS % (AUTO) 67.8 % (42-78); TOTAL CELLS COUNTED % (AUTO) 100 %; WHITE BLOOD COUNT 12.6 10^3/uL (4.0-10.5)
[2020-07-08 06:56] LABS: ALBUMIN 3.2 g/dL (3.5-5.0); ANION GAP 12 (5-19); BLOOD UREA NITROGEN 26 mg/dL (7-20); CALCIUM 8.8 mg/dL (8.4-10.2); CARBON DIOXIDE 22 mmol/L (22-30); CHLORIDE 103 mmol/L (98-107); GLUCOSE 92 mg/dL (75-110); PHOSPHORUS 3.9 mg/dL (2.5-4.5); POTASSIUM 4.4 mmol/L (3.6-5.0)
[2020-07-08] MEDS: INSULIN REG, HUMAN 100 UNIT/ML 3 ML VIAL (PYX) SUBCUT SCH ×4 (07:27→21:17)
[2020-07-08] MEDS ORDERED: LIDOCAINE 1% INJ-PF (10 MG/ML) 30 ML SDV INFIL ONE (08:30)
[2020-07-08 08:31] LABS: ERYTHROCYTE SEDIMENTATION RATE 120 mm/hr (0-20)
[2020-07-08] MEDS: METFORMIN HCL 500 MG TABLET PO SCH ×2 (08:43→15:44)
[2020-07-08] MEDS ORDERED: AMLODIPINE BESYLATE 5 MG TABLET PO SCH ×2 (10:00)
[2020-07-08] MEDS: CEFEPIME 1 GM/D5W RTU 1 GM/50 ML RTUPB IV SCH ×2 (10:03→21:30)
[2020-07-08] MEDS: AMLODIPINE BESYLATE 10 MG TABLET PO SCH (10:04)
[2020-07-08] MEDS: FAMOTIDINE 20 MG TABLET PO SCH ×2 (10:04→21:29)
[2020-07-08] MEDS: HYDROCHLOROTHIAZIDE 25 MG TABLET PO SCH (10:04)
[2020-07-08] MEDS: GLIMEPIRIDE 4 MG TABLET PO SCH (10:04)
[2020-07-08] MEDS: VALSARTAN 160 MG TABLET PO SCH (10:04)
[2020-07-08] MEDS: VANCOMYCIN HCL 1,000 MG in DEXTROSE 5%-WATER 250 ML IV SCH (10:36)
[2020-07-08] MEDS: RINGERS SOLUTION,LACTATED 1,000 ML IV PRN (13:22)
--- NOTE | 2020-07-08 20:51 | PDOC PROGRESS REPORT ---
Subjective Date:: 07/08/20 Subjective:: Patient is resting in bed. Anticipating debridement of the heel lesion. No com plaints at this time. Reason For Visit: PURULENT CELLULITIS,DIABETIC FOOT ULCER, Physical Exam Vital Signs: Temp Pulse Resp BP Pulse Ox 97.6 F 71 19 141/66 H 98 07/08/20 15:00 07/08/20 15:00 07/08/20 15:00 07/08/20 15:00 07/08/20 15:00 Intake & Output 07/07/20 07/08/20 07/09/20 06:59 06:59 06:59 Intake Total 3888 3295 980 Output Total 1975 4025 900 Balance 1913 -730 80 Weight 75.5 kg 76.2 kg 76.2 kg General appearance: PRESENT: no acute distress, cooperative, well-developed Head exam: PRESENT: atraumatic, normocephalic Eye exam: PRESENT: conjunctiva pink. ABSENT: scleral icterus Ear exam: PRESENT: normal external ear exam. ABSENT: bleeding, drainage Mouth exam: PRESENT: moist, tongue midline Respiratory exam: PRESENT: clear to auscultation keyana, symmetrical, unlabored. ABSENT: accessory muscle use, rales, rhonchi, tachypnea, wheezes Cardiovascular exam: PRESENT: RRR, +S1, +S2. ABSENT: bradycardia, diastolic murmur, irregular rhythm, systolic murmur, tachycardia GI/Abdominal exam: PRESENT: normal bowel sounds, soft. ABSENT: distended, guarding, tenderness Rectal exam: PRESENT: deferred Gentrourinary exam: ABSENT: indwelling catheter Extremities exam: PRESENT: other - Slight swelling lateral aspect of the left heel with associated erythema Musculoskeletal exam: PRESENT: ambulatory. ABSENT: deformity, dislocation Neurological exam: PRESENT: alert, awake, oriented to person, oriented to place, oriented to time, oriented to situation, CN II-XII grossly intact. ABSENT: altered Psychiatric exam: PRESENT: appropriate affect. ABSENT: agitated, anxious Focused psych exam: ABSENT: delusional, paranoid, restlessness Skin exam: PRESENT: erythema - Lateral aspect of the left heel, other - The callused tissue left heel as well Results Laboratory Results: 07/08/20 05:49 07/08/20 05:49 07/08/20 07/08/20 05:49 05:49 WBC 12.6 H RBC 3.60 L Hgb 9.9 L Hct 30.1 L MCV 84 MCH 27.6 MCHC 33.0 RDW 14.1 H Plt Count 332 Seg Neutrophils % 67.8 Sodium 136.9 L Potassium 4.4 Chloride 103 Carbon Dioxide 22 Anion Gap 12 BUN 26 H Creatinine 2.30 H Est GFR ( Amer) 34 L Glucose 92 Calcium 8.8 Phosphorus 3.9 Albumin 3.2 L Impressions: Foot X-Ray 07/05/20 14:14 IMPRESSION: No acute osseous abnormality of the left foot. Lower Extremity MRI 07/07/20 00:00 IMPRESSION: 1. Subcutaneous interstitial fluid in the plantar calcaneal soft tissues with draining abscess to the skin surface. No focal drainable fluid collection. No evidence of osteomyelitis. 2. Thickening of the plantar fascia consistent with plantar fasciitis. 3. Reactive bone marrow edema in the calcaneus. Assessment and Plan - Diagnosis (1) Type 2 diabetes mellitus with hyperglycemia Qualifiers: Diabetes mellitus care home insulin use: with legal administrator use Qualified Code(s): E11.65 - Type 2 diabetes mellitus with hyperglycemia; Z79.4 - donor center technician (current) use of insulin Is this a current diagnosis for this admission?: Yes (2) Hypertension Qualifiers: Hypertension type: essential hypertension Qualified Code(s): I10 - Essential (primary) hypertension Is this a current diagnosis for this admission?: Yes (3) Acute kidney injury Is this a current diagnosis for this admission?: Yes (4) Diabetic ulcer of left heel Qualifiers: Diabetes mellitus type: type 2 Non-pressure ulcer stage: unspecified non-pressure ulcer stage Qualified Code(s): E11.621 - Type 2 diabetes mellitus with foot ulcer; L97.429 - Non-pressure chronic ulcer of left heel and midfoot with unspecified severity Is this a current diagnosis for this admission?: Yes (5) Abscess of left heel Is this a current diagnosis for this admission?: Yes - Plan Summary Summary: 07/06/2020 The also has a callused portion and then there is a small tunnel to a subcutaneous collection purulent discharge. You can milk discharge from this area that is expressible at the side of the ulcer. We will likely need to unroofed this area, aggressively cleanse and then use medicated dressings. Hypertension-continue the valsartan with hydrochlorothiazide Diabetes-Lantus started at 50 units. Metformin 1 g twice daily and glimepiride continued. Continue Accu-Cheks and sliding scale. Renal insufficiency-continue lactated Ringer's and recheck labs tomorrow. 07/07/2020 Acute kidney injury improving with hydration Diabetic ulcer of the left heel with abscess-MRI showed that the left calcaneus is not involved and there is no osteomyelitis. There is the abscess that drains to the skin. Continue antibiotics. We will look to unroofed the abscess in order for complete drainage and better treatment tomorrow Accu-Cheks still not well controlled. Increase Lantus. Hypertension-not well controlled on the patient's reported dose of medication. I have increased the valsartan to 320 mg daily, the hydrochlorothiazide is not 25 mg daily and I have added 10 mg amlodipine. There will also be hydralazine available by IV if needed. 07/08/2020 Blood pressures are better with adjustment in medication. Improved glucose control with increased dose of Lantus Continue antibiotics for the left heel abscess Acute kidney injury slightly plateaued. Will increase IV fluids The sed rate is slightly higher. We will continue to monitor. - Time Time Spent with patient: Less than 15 minutes Medications reviewed and adjusted accordingly: Yes Anticipated Discharge Disposition: Home with Home Health Anticipated Discharge Timeframe: within 72 hours
--- NOTE | 2020-07-08 20:58 | Operative Report ---
Bedside Procedure - History of Present Illness History of Present Illness: FREDDY CANTU is a 69 year old male with a history of type 2 diabetes, hypertension, history of prostate cancer now presents with 3 weeks duration of nonhealing wound on the left heel area. Patient was initially seen by manager coding and was being followed at wound care clinic and he was also treated with oral antibiotic as outpatient but the fail to improve and the past few days it started worsening. This morning patient was seen at wound clinic and he was sent to the ER for possible IV antibiotic treatment. He reports 8/10 intensity dull aching pain on his lower extremity which is aggravated by pressure and walking. He denies any fever, nausea, vomiting. He also denies any chest pain, shortness of breath, abdominal pain, change in his bowel or urinary habits. He denies any recent sick contact history. Indication for Procedure: Abscess possibly associated with left diabetic heel ulcer Date: 07/08/20 Provider: TITA DISLA - Incision and Drainage Left Lateral Foot Time completed: 18:30 Type: Simple Anesthetic type: 1% Lidocaine Blade size: 11 Needle Size: Other I&D procedure: Betadine prep applied, Iodoform packing placed Incision Method: Incision made by scalpel Amount/type of drainage: Minimal Notes: 07/08/20 20:56 Patient tolerated the procedure without difficulty 07/08/20 20:57 Lesion was lateral aspect of the left heel. MRI also showed plantar fasciitis. Will reassess in the morning.
[2020-07-08] MEDS: INSULIN GLARGINE,HUM.REC.ANLOG 1,000 UNIT/10 ML VIAL SUBCUT SCH (21:30)
[2020-07-09] MEDS: RINGERS SOLUTION,LACTATED 1,000 ML IV PRN ×3 (01:24→18:33)
[2020-07-09] MEDS: HEPARIN SOD (PORCINE) 5,000 UNIT/ML 1 ML VIAL SUBCUT SCH ×3 (05:16→21:53)
[2020-07-09 06:16] LABS: ABSOLUTE BASOPHILS # (AUTO) 0.1 10^3/uL (0.0-0.2); ABSOLUTE EOSINOPHILS # (AUTO) 0.1 10^3/uL (0.0-0.6); ABSOLUTE LYMPHOCYTES (AUTO) 2.4 10^3/uL (0.5-4.7); ABSOLUTE MONOCYTES (AUTO) 1.1 10^3/uL (0.1-1.4); ABSOLUTE NEUT (AUTO) 7.5 10^3/uL (1.7-8.2); BASOPHILS % (AUTO) 1.1 % (0-2); EOSINOPHILS % (AUTO) 1.3 % (0-6); HEMATOCRIT 33.7 % (37.9-51.0); HEMOGLOBIN 11.1 g/dL (13.5-17.0); LYMPHOCYTES % (AUTO) 21.5 % (13-45); MEAN CORPUSCULAR HEMOGLOBIN 27.7 pg (27.0-33.4); MEAN CORPUSCULAR HGB CONC 32.9 g/dL (32.0-36.0); MEAN CORPUSCULAR VOLUME 84 fl (80-97); MONOCYTES % (AUTO) 10.1 % (3-13); PLATELET COUNT 357 10^3/uL (150-450); RED BLOOD COUNT 3.99 10^6/uL (4.35-5.55); RED CELL DISTRIBUTION WIDTH 14.5 % (11.5-14.0); TOTAL CELLS COUNTED % (AUTO) 100 %; WHITE BLOOD COUNT 11.3 10^3/uL (4.0-10.5)
[2020-07-09 06:36] LABS: ALBUMIN 3.5 g/dL (3.5-5.0); ANION GAP 10 (5-19); BLOOD UREA NITROGEN 24 mg/dL (7-20); CALCIUM 9.2 mg/dL (8.4-10.2); CARBON DIOXIDE 24 mmol/L (22-30); CHLORIDE 103 mmol/L (98-107); GLUCOSE 73 mg/dL (75-110); PHOSPHORUS 4.3 mg/dL (2.5-4.5); POTASSIUM 4.4 mmol/L (3.6-5.0)
[2020-07-09 06:53] LABS: ERYTHROCYTE SEDIMENTATION RATE 107 mm/hr (0-20)
[2020-07-09] MEDS: INSULIN REG, HUMAN 100 UNIT/ML 3 ML VIAL (PYX) SUBCUT SCH ×4 (07:33→21:44)
[2020-07-09] MEDS: METFORMIN HCL 500 MG TABLET PO SCH ×2 (08:41→17:21)
[2020-07-09] MEDS: HYDROCHLOROTHIAZIDE 25 MG TABLET PO SCH (09:17)
[2020-07-09] MEDS: AMLODIPINE BESYLATE 10 MG TABLET PO SCH (09:17)
[2020-07-09] MEDS: OXYCODONE-ACETAMINOPHEN 5-325 MG TABLET PO PRN ×3 (09:17→23:50)
[2020-07-09] MEDS: VALSARTAN 160 MG TABLET PO SCH (09:18)
[2020-07-09] MEDS: GLIMEPIRIDE 4 MG TABLET PO SCH (09:18)
[2020-07-09] MEDS: CEFEPIME 1 GM/D5W RTU 1 GM/50 ML RTUPB IV SCH ×2 (09:19→21:52)
[2020-07-09] MEDS: FAMOTIDINE 20 MG TABLET PO SCH ×2 (09:19→21:54)
[2020-07-09 10:32] LABS: VANCOMYCIN,TROUGH 13.1 ug/mL (5.0-20.0)
[2020-07-09] MEDS: VANCOMYCIN HCL 1,000 MG in DEXTROSE 5%-WATER 250 ML IV SCH (10:57)
--- NOTE | 2020-07-09 15:13 | PDOC CONSULTATION ---
Consultation Consult Date: 07/09/20 Provider Consulted: SHANNON WHITAKER Consult reason:: Persistent severe pains over the left heel post I&D yesterday History of Present Illness Admission Date/PCP: 07/05/20 22:18 KIMBERLY MONROY DPM History of Present Illness: FREDDY CANTU is a 69 year old male diabetic who was been complaining of pains along the left heel for the past 3 weeks. Initially seen at his instructor weaving office and subsequently sent to the wound care center where he was placed on p.o. antibiotics. Patient was seen last on 07/07/2020 and subsequently sent to the ED for admission for possible IV antibiotics. Yesterday hospitalist did an I&D of the left heel with minimal drainage. Today patient still has redness and pains along the left heel and surgery is being consulted. Past Medical History Psychiatric Medical History: Denies: Depression Social History Lives with: Family Smoking Status: Never Smoker Electronic Cigarette use?: No Hx Recreational Drug Use: No Drugs: None Hx Prescription Drug Abuse: No - Advance Directive Resuscitation Status: Full Code Family History Family History: Reviewed & Not Pertinent Parental Family History Reviewed: Yes Children Family History Reviewed: No Sibling(s) Family History Reviewed.: No Medication/Allergy Home Medications: Glimepiride [Amaryl 4 mg Tablet] 4 mg PO DAILY 07/06/20 Insulin Glargine,Hum.rec.anlog [Meka Padilla] 60 units SUBCUT Q12 MDD 120 UNITS 07/06/20 Saxagliptin HCl/Metformin HCl [Kombiglyze Xr 2.5-1,000 mg Tab] 1 tab PO BID 07/06/20 Valsartan/Hydrochlorothiazide [Valsartan-Hctz 160-12.5 mg Tab] 1 tab PO DAILY 07/06/20 Allergies/Adverse Reactions: No Known Allergies Allergy (Verified 07/05/20 17:39) Review of Systems Constitutional: PRESENT: other - Denies fever fever no chills Musculoskeletal: PRESENT: other - Left heel pains post I&D Physical Exam Vital Signs: Temp Pulse Resp BP Pulse Ox 98.6 F 74 17 159/71 H 99 07/09/20 11:14 07/09/20 11:14 07/09/20 11:14 07/09/20 11:14 07/09/20 11:14 Intake & Output 07/08/20 07/09/20 07/10/20 06:59 06:59 06:59 Intake Total 3295 2550 1780 Output Total 4025 2650 600 Balance -730 -100 1180 Weight 76.2 kg 77.8 kg Exam: The left heel noted to have redness with the previous incision and drainage in wound. No evidence of abscess. No drainage on squeezing around the area and no swelling or fluctuation noted. However, I could not feel a pulse on the left posterior tibial artery or dorsalis pedis artery in the left ankle but has +2 left popliteal artery palpable pulse. He has normal right dorsalis pedis artery pulse. Results Laboratory Results: 07/09/20 05:50 07/09/20 05:50 07/09/20 07/09/20 05:50 05:50 WBC 11.3 H RBC 3.99 L Hgb 11.1 L Hct 33.7 L MCV 84 MCH 27.7 MCHC 32.9 RDW 14.5 H Plt Count 357 Seg Neutrophils % 66.0 Sodium 137.4 Potassium 4.4 Chloride 103 Carbon Dioxide 24 Anion Gap 10 BUN 24 H Creatinine 2.39 H Est GFR ( Amer) 33 L Glucose 73 L Calcium 9.2 Phosphorus 4.3 Albumin 3.5 Impressions: Foot X-Ray 07/05/20 14:14 IMPRESSION: No acute osseous abnormality of the left foot. Lower Extremity MRI 07/07/20 00:00 IMPRESSION: 1. Subcutaneous interstitial fluid in the plantar calcaneal soft tissues with draining abscess to the skin surface. No focal drainable fluid collection. No evidence of osteomyelitis. 2. Thickening of the plantar fascia consistent with plantar fasciitis. 3. Reactive bone marrow edema in the calcaneus. Assessment & Plan - Diagnosis (1) Abscess of left heel Is this a current diagnosis for this admission?: Yes (2) Acute kidney injury Is this a current diagnosis for this admission?: Yes (3) Diabetic ulcer of left heel Qualifiers: Diabetes mellitus type: type 2 Non-pressure ulcer stage: unspecified non- pressure ulcer stage Qualified Code(s): E11.621 - Type 2 diabetes mellitus with foot ulcer; L97.429 - Non-pressure chronic ulcer of left heel and midfoot with unspecified severity Is this a current diagnosis for this admission?: Yes (4) Type 2 diabetes mellitus with hyperglycemia Qualifiers: Diabetes mellitus alf insulin use: with intermediate manager use Qualified Code(s): E11.65 - Type 2 diabetes mellitus with hyperglycemia; Z79.4 - terminal operations supervisor (current) use of insulin Is this a current diagnosis for this admission?: Yes (5) Severe arterial insufficiency of left lower extremity Is this a current diagnosis for this admission?: Yes - Time Time Spent: 30 to 50 Minutes Anticipated discharge: Home Anticipated DC Timeframe: Other - 1 week - Inpatient Certification Medical Necessity: Need for IV Antibiotics - Plan Summary Plan Summary: Is a 69-year-old male with type 2 diabetes noted to have a wound in the left heel noted 3 weeks ago and followed at the wound care center. He was sent to the hospital on 07/07/2020 from the wound care center for IV antibiotics therapy. Yesterday the left heel was drained with minimal drainage by the hospitalist. Today patient still complaining of a lot of pains with redness along the left heel incision site. The left heel is red with no further drainage or any views abscess. However patient has severe arterial insufficiency of the left ankle and foot because I could not feel up palpable pulse on the left ankle. However there is palpable left popliteal artery pulse and he has a very good right dorsalis pedis artery palpable pulse. Impression: Cellulitis of the left heel post IND. Severe arterial insufficiency left lower leg Type 2 diabetes mellitus with markedly elevated blood sugar of over 500 on admission. Recommendations: Continue IV antibiotics Arterial Doppler study of the left leg Will need urgent vascular evaluation, especially if there is no improvement in the next 24 to 48hours.
--- NOTE | 2020-07-09 16:09 | PDOC PROGRESS REPORT ---
Subjective Date:: 07/09/20 Subjective:: Patient is resting in bed. His is at the bedside. Reason For Visit: PURULENT CELLULITIS,DIABETIC FOOT ULCER, Physical Exam Vital Signs: Temp Pulse Resp BP Pulse Ox 97.8 F 73 18 142/68 H 98 07/09/20 15:00 07/09/20 15:00 07/09/20 15:00 07/09/20 15:00 07/09/20 15:00 Intake & Output 07/08/20 07/09/20 07/10/20 06:59 06:59 06:59 Intake Total 3295 2550 1780 Output Total 4025 2650 600 Balance -730 -100 1180 Weight 76.2 kg 77.8 kg General appearance: PRESENT: no acute distress Head exam: PRESENT: atraumatic, normocephalic Respiratory exam: PRESENT: clear to auscultation keyana, symmetrical, unlabored. ABSENT: rales, rhonchi, tachypnea, wheezes Cardiovascular exam: PRESENT: RRR. ABSENT: bradycardia, diastolic murmur, irregular rhythm, systolic murmur, tachycardia GI/Abdominal exam: PRESENT: normal bowel sounds, soft. ABSENT: tenderness Rectal exam: PRESENT: deferred Gentrourinary exam: ABSENT: indwelling catheter Extremities exam: ABSENT: pedal edema Musculoskeletal exam: PRESENT: other - Decreased muscle mass Neurological exam: PRESENT: alert, awake, oriented to person, oriented to place, oriented to time, oriented to situation. ABSENT: altered Psychiatric exam: PRESENT: appropriate affect. ABSENT: agitated, anxious Skin exam: PRESENT: erythema - Left heel, other - Callus left heel Results Laboratory Results: 07/09/20 05:50 07/09/20 05:50 07/09/20 07/09/20 05:50 05:50 WBC 11.3 H RBC 3.99 L Hgb 11.1 L Hct 33.7 L MCV 84 MCH 27.7 MCHC 32.9 RDW 14.5 H Plt Count 357 Seg Neutrophils % 66.0 Sodium 137.4 Potassium 4.4 Chloride 103 Carbon Dioxide 24 Anion Gap 10 BUN 24 H Creatinine 2.39 H Est GFR ( Amer) 33 L Glucose 73 L Calcium 9.2 Phosphorus 4.3 Albumin 3.5 Impressions: Foot X-Ray 07/05/20 14:14 IMPRESSION: No acute osseous abnormality of the left foot. Lower Extremity MRI 07/07/20 00:00 IMPRESSION: 1. Subcutaneous interstitial fluid in the plantar calcaneal soft tissues with draining abscess to the skin surface. No focal drainable fluid collection. No evidence of osteomyelitis. 2. Thickening of the plantar fascia consistent with plantar fasciitis. 3. Reactive bone marrow edema in the calcaneus. 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 Qualified Code(s): E11.65 - Type 2 diabetes mellitus with hyperglycemia; Z79.4 - half-way (current) use of insulin Is this a current diagnosis for this admission?: Yes (2) Hypertension Qualifiers: Hypertension type: essential hypertension Qualified Code(s): I10 - Essential (primary) hypertension Is this a current diagnosis for this admission?: Yes (3) Acute kidney injury Is this a current diagnosis for this admission?: Yes (4) Diabetic ulcer of left heel Qualifiers: Diabetes mellitus type: type 2 Non-pressure ulcer stage: unspecified non- pressure ulcer stage Qualified Code(s): E11.621 - Type 2 diabetes mellitus with foot ulcer; L97.429 - Non-pressure chronic ulcer of left heel and midfoot with unspecified severity Is this a current diagnosis for this admission?: Yes (5) Abscess of left heel Is this a current diagnosis for this admission?: Yes - Plan Summary Summary: 07/06/2020 The also has a callused portion and then there is a small tunnel to a subcutaneous collection purulent discharge. You can milk discharge from this a mali that is expressible at the side of the ulcer. We will likely need to unroofed this area, aggressively cleanse and then use medicated dressings. Hypertension-continue the valsartan with hydrochlorothiazide Diabetes-Lantus started at 50 units. Metformin 1 g twice daily and glimepiride continued. Continue Accu-Cheks and sliding scale. Renal insufficiency-continue lactated Ringer's and recheck labs tomorrow. 07/07/2020 Acute kidney injury improving with hydration Diabetic ulcer of the left heel with abscess-MRI showed that the left calcaneus is not involved and there is no osteomyelitis. There is the abscess that drains to the skin. Continue antibiotics. We will look to unroofed the abscess in order for complete drainage and better treatment tomorrow Accu-Cheks still not well controlled. Increase Lantus. Hypertension-not well controlled on the patient's reported dose of medication. I have increased the valsartan to 320 mg daily, the hydrochlorothiazide is not 25 mg daily and I have added 10 mg amlodipine. There will also be hydralazine available by IV if needed. 07/08/2020 Blood pressures are better with adjustment in medication. Improved glucose control with increased dose of Lantus Continue antibiotics for the left heel abscess Acute kidney injury slightly plateaued. Will increase IV fluids The sed rate is slightly higher. We will continue to monitor. 07/09/2020 Appreciate surgical list consultation. We will continue iodoform ribbon gauze packing. Continue IV antibiotics. Consider outpatient IV antibiotics versus broad- spectrum oral antibiotics such as Augmentin. Renal function is still compromised. Creatinine is still elevated. I did discuss this with the patient and his . She will try and obtain laboratory studies from his primary care provider. The patient's pulses in the left foot are diminished. He did have a Doppler study in April 2019 that showed elevated CHRISTOPHER but no evidence of interrupted flow by Doppler study. We will repeat the study on the left leg today. With elevated ABIs and history of diabetes it is very surprising that he is not on aspirin and statin therapy. If there is no contraindication he would benefit from adding these medications. The sed rate is slightly lower today. We will continue current treatment regim en. - Time Time Spent with patient: 15-24 minutes Medications reviewed and adjusted accordingly: Yes Anticipated Discharge Disposition: Home, Self Care Anticipated Discharge Timeframe: within 72 hours
[2020-07-09] MEDS: INSULIN GLARGINE,HUM.REC.ANLOG 1,000 UNIT/10 ML VIAL SUBCUT SCH (21:53)
[2020-07-09] MEDS: ASPIRIN 81 MG TABLET, ENT COATED PO SCH (21:54)
[2020-07-09] MEDS ORDERED: ATORVASTATIN CALCIUM 20 MG TABLET PO SCH (22:00)
[2020-07-10 05:59] LABS: CHOLESTEROL 162.55 mg/dL (0-200); TRIGLYCERIDES 314 mg/dL (<150)
[2020-07-10 06:09] LABS: DIRECT LDL 78 mg/dL (<100)
[2020-07-10 06:10] LABS: VLDL CHOLESTEROL 62.8 mg/dL (10-31)
[2020-07-10] MEDS: HEPARIN SOD (PORCINE) 5,000 UNIT/ML 1 ML VIAL SUBCUT SCH ×3 (06:44→22:42)
[2020-07-10] MEDS: RINGERS SOLUTION,LACTATED 1,000 ML IV PRN ×2 (06:45→17:23)
[2020-07-10] MEDS: INSULIN REG, HUMAN 100 UNIT/ML 3 ML VIAL (PYX) SUBCUT SCH ×4 (07:19→22:53)
[2020-07-10] MEDS: METFORMIN HCL 500 MG TABLET PO SCH ×2 (09:47→17:22)
[2020-07-10] MEDS: HYDROCHLOROTHIAZIDE 25 MG TABLET PO SCH (09:48)
[2020-07-10] MEDS: FAMOTIDINE 20 MG TABLET PO SCH ×2 (09:48→22:53)
[2020-07-10] MEDS: AMLODIPINE BESYLATE 10 MG TABLET PO SCH (09:48)
[2020-07-10] MEDS: VALSARTAN 160 MG TABLET PO SCH (09:48)
[2020-07-10] MEDS: GLIMEPIRIDE 4 MG TABLET PO SCH (09:49)
[2020-07-10] MEDS: CEFEPIME 1 GM/D5W RTU 1 GM/50 ML RTUPB IV SCH ×2 (09:49→22:41)
--- NOTE | 2020-07-10 11:28 | PDOC PROGRESS REPORT ---
Subjective Date:: 07/10/20 Subjective:: Patient is resting comfortably in bed. No new complaints. Reason For Visit: PURULENT CELLULITIS,DIABETIC FOOT ULCER, Physical Exam Vital Signs: Temp Pulse Resp BP Pulse Ox 98.6 F 73 18 166/69 H 96 07/10/20 11:04 07/10/20 11:04 07/10/20 11:04 07/10/20 11:04 07/10/20 11:04 Intake & Output 07/09/20 07/10/20 07/11/20 06:59 06:59 06:59 Intake Total 2550 4610 50 Output Total 2650 2150 Balance -100 2460 50 Weight 77.8 kg 77.8 kg General appearance: PRESENT: no acute distress, cooperative, well-developed Head exam: PRESENT: atraumatic, normocephalic Eye exam: PRESENT: conjunctiva pink. ABSENT: scleral icterus Ear exam: PRESENT: normal external ear exam. ABSENT: bleeding, drainage Mouth exam: PRESENT: moist, tongue midline Neck exam: PRESENT: full ROM. ABSENT: carotid bruit, JVD, lymphadenopathy Respiratory exam: PRESENT: clear to auscultation keyana, symmetrical, unlabored. ABSENT: accessory muscle use, rales, rhonchi, tachypnea, wheezes Cardiovascular exam: PRESENT: RRR, +S1, +S2. ABSENT: bradycardia, diastolic murmur, irregular rhythm, systolic murmur, tachycardia Pulses: PRESENT: other - 2+ dorsalis pedis pulse on the right. Very slight dorsalis pedis pulse on the left. GI/Abdominal exam: PRESENT: normal bowel sounds, soft. ABSENT: distended, guarding, tenderness Rectal exam: PRESENT: deferred Gentrourinary exam: ABSENT: indwelling catheter Extremities exam: ABSENT: pedal edema Neurological exam: PRESENT: alert, awake, oriented to person, oriented to place, oriented to time, oriented to situation, CN II-XII grossly intact. ABSENT: altered Psychiatric exam: PRESENT: appropriate affect. ABSENT: agitated, anxious Focused psych exam: ABSENT: delusional, paranoid, restlessness Skin exam: PRESENT: dry, erythema - Left heel, warm. ABSENT: abrasion, cyanosis Results Laboratory Results: 07/09/20 05:50 07/09/20 05:50 07/10/20 05:14 Triglycerides 314 H Cholesterol 162.55 LDL Cholesterol Direct 78 VLDL Cholesterol 62.8 H HDL Cholesterol 19 L Impressions: Foot X-Ray 07/05/20 14:14 IMPRESSION: No acute osseous abnormality of the left foot. Lower Extremity MRI 07/07/20 00:00 IMPRESSION: 1. Subcutaneous interstitial fluid in the plantar calcaneal soft tissues with draining abscess to the skin surface. No focal drainable fluid collection. No evidence of osteomyelitis. 2. Thickening of the plantar fascia consistent with plantar fasciitis. 3. Reactive bone marrow edema in the calcaneus. 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[facility] use Qualified Code(s): E11.65 - Type 2 diabetes mellitus with hyperglycemia; Z79.4 - senior care (current) use of insulin Is this a current diagnosis for this admission?: Yes (2) Hypertension Qualifiers: Hypertension type: essential hypertension Qualified Code(s): I10 - Essential (primary) hypertension Is this a current diagnosis for this admission?: Yes (3) Acute kidney injury Is this a current diagnosis for this admission?: Yes (4) Diabetic ulcer of left heel Qualifiers: Diabetes mellitus type: type 2 Non-pressure ulcer stage: unspecified non- pressure ulcer stage Qualified Code(s): E11.621 - Type 2 diabetes mellitus with foot ulcer; L97.429 - Non-pressure chronic ulcer of left heel and midfoot with unspecified severity Is this a current diagnosis for this admission?: Yes (5) Abscess of left heel Is this a current diagnosis for this admission?: Yes (6) Severe arterial insufficiency of left lower extremity Is this a current diagnosis for this admission?: Yes - Plan Summary Summary: 07/06/2020 The also has a callused portion and then there is a small tunnel to a subcutaneous collection purulent discharge. You can milk discharge from this area that is expressible at the side of the ulcer. We will likely need to unroofed this area, aggressively cleanse and then use medicated dressings. Hypertension-continue the valsartan with hydrochlorothiazide Diabetes-Lantus started at 50 units. Metformin 1 g twice daily and glimepiride continued. Continue Accu-Cheks and sliding scale. Renal insufficiency-continue lactated Ringer's and recheck labs tomorrow. 07/07/2020 Acute kidney injury improving with hydration Diabetic ulcer of the left heel with abscess-MRI showed that the left calcaneus is not involved and there is no osteomyelitis. There is the abscess that drains to the skin. Continue antibiotics. We will look to unroofed the abscess in order for complete drainage and better treatment tomorrow Accu-Cheks still not well controlled. Increase Lantus. Hypertension-not well controlled on the patient's reported dose of medication. I have increased the valsartan to 320 mg daily, the hydrochlorothiazide is not 25 mg daily and I have added 10 mg amlodipine. There will also be hydralazine available by IV if needed. 07/08/2020 Blood pressures are better with adjustment in medication. Improved glucose control with increased dose of Lantus Continue antibiotics for the left heel abscess Acute kidney injury slightly plateaued. Will increase IV fluids The sed rate is slightly higher. We will continue to monitor. 07/09/2020 Appreciate surgical list consultation. We will continue iodoform ribbon gauze packing. Continue IV antibiotics. Consider outpatient IV antibiotics versus broad- spectrum oral antibiotics such as Augmentin. Renal function is still compromised. Creatinine is still elevated. I did discuss this with the patient and his . She will try and obtain laboratory studies from his primary care provider. The patient's pulses in the left foot are diminished. He did have a Doppler study in April 2019 that showed elevated CHRISTOPHER but no evidence of interrupted flow by Doppler study. We will repeat the study on the left leg today. With elevated ABIs and history of diabetes it is very surprising that he is not on a spirin and statin therapy. If there is no contraindication he would benefit from adding these medications. The sed rate is slightly lower today. We will continue current treatment regimen. 07/10/2020 The abscess cavity was probed with a scalpel and then irrigated with sterile saline. Some purulent material was expressed. Once it was irrigated I repacked it with 1/4 inch strip of iodoform ribbon gauze approximately 3 to 3-1/2 inches long. A small tail was left external to the cavity. 2 sterile gauze pads were placed over the lesion and the gauze was secured with Kerlix and tape. This ne eds to be changed daily. We will try and teach the family how to perform dressing changes and see if home health can check on his heel considering his diabetes, peripheral vascular disease, hypertension and chronic kidney disease. Will likely change to oral antibiotic tomorrow. Will use Augmentin. The patient finished a course of Keflex 1 g 3 times daily recently. Discussed the need for vascular surgery referral with the patient and his son. They also would like to establish with a different primary care provider. I explained the need for aspirin and statin therapy. He is now on 81 mg aspirin daily and I increased his atorvastatin to 80 mg daily. Lipid panel showed hypertriglyceridemia with very low HDL. The patient's hemoglobin A1c was 9.2 thus reflecting very poor control. I explained that the combination of his diabetes, hypertension, chronic renal failure and peripheral vascular disease present high risks. Continue IV antibiotics for today. Plan on discharge tomorrow with home health. Will need referrals to vascular surgery, primary care provider and eventually nephrology and possibly cardiology. - Time Time Spent with patient: 25-34 minutes Medications reviewed and adjusted accordingly: Yes Anticipated Discharge Disposition: Home with Home Health Anticipated Discharge Timeframe: within 24 hours
[2020-07-10] MEDS: VANCOMYCIN HCL 1,000 MG in DEXTROSE 5%-WATER 250 ML IV SCH (11:42)
[2020-07-10] MEDS: OXYCODONE-ACETAMINOPHEN 5-325 MG TABLET PO PRN (11:42)
--- NOTE | 2020-07-10 17:17 | RADIOLOGY REPORT (SQ) ---
EXAM DESCRIPTION: ARTERIAL LOWER EXTREM UNILAT IMAGES COMPLETED DATE/TIME: 07/09/2020 7:12 pm REASON FOR STUDY: Diminished pulses left lower leg COMPARISON: None. TECHNIQUE: Dynamic and static burgess scale and color images acquired of the left lower extremity arter ies. Additional selected spectral images recorded. LIMITATIONS: None. FINDINGS: LEFT LEG: INFLOW ARTERIES: Normal, no obstruction evident. FEMORAL ARTERIES:Multiphasic waveforms. Normal, no velocity elevation to suggest focal stenosis. Norm al color Doppler evaluation. No aneurysm. POPLITEAL ARTERY:Multiphasic waveforms. Normal, no velocity elevation to suggest focal stenosis. Norm al color Doppler evaluation. No aneurysm. PATENT TIBIOPERONEAL TRUNK AND 3 VESSEL RUNOFF: 3 vessel runoff. Biphasic tibial artery flow. Monop hasic dorsalis pedis. OTHER: No other significant finding. IMPRESSION: No focal hemodynamically significant stenosis left lower extremity. TECHNICAL DOCUMENTATION: JOB ID: [id number] 2010 [employer]- All Rights Reserved Reading location - IP/workstation name: [email or web address]
[2020-07-10] MEDS ORDERED: ATORVASTATIN CALCIUM 80 MG TABLET PO SCH (22:00)
[2020-07-10] MEDS: ASPIRIN 81 MG TABLET, ENT COATED PO SCH (22:41)
[2020-07-10] MEDS: INSULIN GLARGINE,HUM.REC.ANLOG 1,000 UNIT/10 ML VIAL SUBCUT SCH (22:53)
[2020-07-11] MEDS: OXYCODONE-ACETAMINOPHEN 5-325 MG TABLET PO PRN (01:59)
[2020-07-11] MEDS: RINGERS SOLUTION,LACTATED 1,000 ML IV PRN ×2 (02:33→09:59)
[2020-07-11] MEDS: HEPARIN SOD (PORCINE) 5,000 UNIT/ML 1 ML VIAL SUBCUT SCH ×2 (05:59→14:49)
[2020-07-11 07:22] LABS: HEMATOCRIT 30.1 % (37.9-51.0); MEAN CORPUSCULAR HEMOGLOBIN 27.7 pg (27.0-33.4); MEAN CORPUSCULAR HGB CONC 33.3 g/dL (32.0-36.0); MEAN CORPUSCULAR VOLUME 83 fl (80-97); PLATELET COUNT 311 10^3/uL (150-450); RED BLOOD COUNT 3.62 10^6/uL (4.35-5.55); RED CELL DISTRIBUTION WIDTH 14.8 % (11.5-14.0); WHITE BLOOD COUNT 12.4 10^3/uL (4.0-10.5)
[2020-07-11 07:47] LABS: ALBUMIN 3.1 g/dL (3.5-5.0); ANION GAP 7 (5-19); BLOOD UREA NITROGEN 24 mg/dL (7-20); CARBON DIOXIDE 28 mmol/L (22-30); CHLORIDE 101 mmol/L (98-107); GLUCOSE 79 mg/dL (75-110); PHOSPHORUS 3.3 mg/dL (2.5-4.5); POTASSIUM 5.5 mmol/L (3.6-5.0)
[2020-07-11] MEDS: INSULIN REG, HUMAN 100 UNIT/ML 3 ML VIAL (PYX) SUBCUT SCH ×2 (09:55→11:31)
[2020-07-11] MEDS: METFORMIN HCL 500 MG TABLET PO SCH (09:56)
[2020-07-11] MEDS: AMLODIPINE BESYLATE 10 MG TABLET PO SCH (09:56)
[2020-07-11] MEDS: FAMOTIDINE 20 MG TABLET PO SCH (09:56)
[2020-07-11] MEDS: HYDROCHLOROTHIAZIDE 25 MG TABLET PO SCH (09:56)
[2020-07-11] MEDS: VALSARTAN 160 MG TABLET PO SCH (09:58)
[2020-07-11] MEDS: CEFEPIME 1 GM/D5W RTU 1 GM/50 ML RTUPB IV SCH (09:59)
[2020-07-11] MEDS: GLIMEPIRIDE 4 MG TABLET PO SCH (09:59)
[2020-07-11 11:33] VITALS: BP 148/65
--- NOTE | 2020-07-11 13:15 | PDOC DISCHARGE SUMMARY ---
Impression - Admit/DC Date/PCP Admission Date/Primary Care Provider: 07/05/20 22:18 KIMBERLY MONROY DPM Discharge Date: 07/11/20 - Discharge Diagnosis (1) Type 2 diabetes mellitus with hyperglycemia Is this a current diagnosis for this admission?: Yes (2) Hypertension Is this a current diagnosis for this admission?: Yes (3) Acute kidney injury Is this a current diagnosis for this admission?: Yes (4) Diabetic ulcer of left heel Is this a current diagnosis for this admission?: Yes (5) Abscess of left heel Is this a current diagnosis for this admission?: Yes (6) Severe arterial insufficiency of left lower extremity Is this a current diagnosis for this admission?: Yes - Assessment Summary: 07/06/2020 The also has a callused portion and then there is a small tunnel to a subcutaneous collection purulent discharge. You can milk discharge from this area that is expressible at the side of the ulcer. We will likely need to unroofed this area, aggressively cleanse and then use medicated dressings. Hypertension-continue the valsartan with hydrochlorothiazide Diabetes-Lantus started at 50 units. Metformin 1 g twice daily and glimepiride continued. Continue Accu-Cheks and sliding scale. Renal insufficiency-continue lactated Ringer's and recheck labs tomorrow. 07/07/2020 Acute kidney injury improving with hydration Diabetic ulcer of the left heel with abscess-MRI showed that the left calcaneus is not involved and there is no osteomyelitis. There is the abscess that drains to the skin. Continue antibiotics. We will look to unroofed the abscess in order for complete drainage and better treatment tomorrow Accu-Cheks still not well controlled. Increase Lantus. Hypertension-not well controlled on the patient's reported dose of medication. I have increased the valsartan to 320 mg daily, the hydrochlorothiazide is not 25 mg daily and I have added 10 mg amlodipine. There will also be hydralazine available by IV if needed. 07/08/2020 Blood pressures are better with adjustment in medication. Improved glucose control with increased dose of Lantus Continue antibiotics for the left heel abscess Acute kidney injury slightly plateaued. Will increase IV fluids The sed rate is slightly higher. We will continue to monitor. 07/09/2020 Appreciate surgical list consultation. We will continue iodoform ribbon gauze packing. Continue IV antibiotics. Consider outpatient IV antibiotics versus broad- spectrum oral antibiotics such as Augmentin. Renal function is still compromised. Creatinine is still elevated. I did discuss this with the patient and his . She will try and obtain laboratory studies from his primary care provider. The patient's pulses in the left foot are diminished. He did have a Doppler study in April 2019 that showed elevated CHRISTOPHER but no evidence of interrupted flow by Doppler study. We will repeat the study on the left leg today. With elevated ABIs and history of diabetes it is very surprising that he is not on aspirin and statin therapy. If there is no contraindication he would benefit from adding these medications. The sed rate is slightly lower today. We will continue current treatment regimen. 07/10/2020 The abscess cavity was probed with a scalpel and then irrigated with sterile saline. Some purulent material was expressed. Once it was irrigated I repacked it with 1/4 inch strip of iodoform ribbon gauze approximately 3 to 3-1/2 inches long. A small tail was left external to the cavity. 2 sterile gauze pads were placed over the lesion and the gauze was secured with Kerlix and tape. This needs to be changed daily. We will try and teach the family how to perform dressing changes and see if home health can check on his heel considering his diabetes, peripheral vascular disease, hypertension and chronic kidney disease. Will likely change to oral antibiotic tomorrow. Will use Augmentin. The patient finished a course of Keflex 1 g 3 times daily recently. Discussed the need for vascular surgery referral with the patient and his son. They also would like to establish with a different primary care provider. I explained the need for aspirin and statin therapy. He is now on 81 mg aspirin daily and I increased his atorvastatin to 80 mg daily. Lipid panel showed hypertriglyceridemia with very low HDL. The patient's hemoglobin A1c was 9.2 thus reflecting very poor control. I explained that the combination of his diabetes, hypertension, chronic renal failure and peripheral vascular disease present high risks. Continue IV antibiotics for today. Plan on discharge tomorrow with home health. Will need referrals to vascular surgery, primary care provider and eventually nephrology and possibly cardiology. - Additional Information Resuscitation Status: Full Code Referrals: SHRUTHI WILDE DO [NO LOCAL MD] - (FOLLOW UP WITHIN 7-10 DAYS ) Prescriptions: Amoxicillin/Potassium Clav [Augmentin 875-125 Tablet] 1 tab PO Q12 7 Days #14 tablet Atorvastatin Calcium [Lipitor 80 mg Tablet] 80 mg PO QHS #30 tablet Amlodipine Besylate [Norvasc 10 mg Tablet] 10 mg PO DAILY #30 tablet Oxycodone HCl/Acetaminophen [Percocet 5-325 mg Tablet] 1 tab PO Q6HP PRN #8 tablet PRN Reason: For Pain Scale 4-5 Valsartan/Hydrochlorothiazide [Valsartan-Hctz 160-12.5 mg Tab] 1 tab PO BID #30 tab Home Medications: Glimepiride [Amaryl 4 mg Tablet] 4 mg PO DAILY 07/06/20 Insulin Glargine,Hum.rec.anlog [Meka Padilla] 60 units SUBCUT Q12 MDD 120 UNITS 07/06/20 Saxagliptin HCl/Metformin HCl [Kombiglyze Xr 2.5-1,000 mg Tab] 1 tab PO BID 07/06/20 Amlodipine Besylate [Norvasc 10 mg Tablet] 10 mg PO DAILY #30 tablet 07/11/20 Amoxicillin/Potassium Clav [Augmentin 875-125 Tablet] 1 tab PO Q12 7 Days #14 tablet 07/11/20 Aspirin [Ecotrin 81 mg EC Tablet] 81 mg PO QHS tabec 07/11/20 Atorvastatin Calcium [Lipitor 80 mg Tablet] 80 mg PO QHS #30 tablet 07/11/20 Oxycodone HCl/Acetaminophen [Percocet 5-325 mg Tablet] 1 tab PO Q6HP PRN #8 tablet 07/11/20 Valsartan/Hydrochlorothiazide [Valsartan-Hctz 160-12.5 mg Tab] 1 tab PO BID #30 tab 07/11/20 History of Present Illiness History of Present Illness: FREDDY CANTU is a 69 year old male with a history of type 2 diabetes, hypertension, history of prostate cancer now presents with 3 weeks duration of nonhealing wound on the left heel area. Patient was initially seen by oxygen equipment technician and was being followed at wound care clinic and he was also treated with oral antibiotic as outpatient but the fail to improve and the past few days it started worsening. This morning patient was seen at wound clinic and he was sent to the ER for possible IV antibiotic treatment. He reports 8/10 intensity dull aching pain on his lower extremity which is aggravated by pressure and walking. He denies any fever, nausea, vomiting. He also denies any chest pain, shortness of breath, abdominal pain, change in his bowel or urinary habits. He denies any recent sick contact history. Hospital Course Hospital Course: As above Physical Exam Vital Signs: Temp Pulse Resp BP Pulse Ox 98.6 F 75 20 148/65 H 96 07/11/20 11:32 07/11/20 11:32 07/11/20 11:32 07/11/20 11:32 07/11/20 11:32 Intake & Output 07/10/20 07/11/20 07/12/20 06:59 06:59 06:59 Intake Total 4610 3741 1050 Output Total 2150 2225 Balance 2460 1516 1050 Weight 77.8 kg 77.8 kg General appearance: PRESENT: no acute distress Respiratory exam: PRESENT: clear to auscultation keyana, symmetrical, unlabored. ABSENT: rales, rhonchi, tachypnea Cardiovascular exam: PRESENT: RRR, +S1, +S2 GI/Abdominal exam: PRESENT: normal bowel sounds, soft. ABSENT: tenderness Rectal exam: PRESENT: deferred Gentrourinary exam: ABSENT: indwelling catheter Extremities exam: ABSENT: pedal edema Musculoskeletal exam: PRESENT: other - Dressing on left heel Neurological exam: PRESENT: alert, awake, oriented to person, oriented to place, oriented to time, oriented to situation, CN II-XII grossly intact. ABSENT: altered Psychiatric exam: PRESENT: appropriate affect. ABSENT: agitated, anxious Focused psych exam: ABSENT: delusional, paranoid, restlessness Skin exam: PRESENT: erythema - Left heel Results Laboratory Results: WBC 12.4 10^3/uL (4.0-10.5) H 07/11/20 06:45 RBC 3.62 10^6/uL (4.35-5.55) L 07/11/20 06:45 Hgb 10.0 g/dL (13.5-17.0) L 07/11/20 06:45 Hct 30.1 % (37.9-51.0) L 07/11/20 06:45 MCV 83 fl (80-97) 07/11/20 06:45 MCH 27.7 pg (27.0-33.4) 07/11/20 06:45 MCHC 33.3 g/dL (32.0-36.0) 07/11/20 06:45 RDW 14.8 % (11.5-14.0) H 07/11/20 06:45 Plt Count 311 10^3/uL (150-450) 07/11/20 06:45 Lymph % (Auto) 21.5 % (13-45) 07/09/20 05:50 [place] % (Auto) 10.1 % (3-13) 07/09/20 05:50 Eos % (Auto) 1.3 % (0-6) 07/09/20 05:50 Baso % (Auto) 1.1 % (0-2) 07/09/20 05:50 Absolute Neuts (auto) 7.5 10^3/uL (1.7-8.2) 07/09/20 05:50 Absolute Lymphs (auto) 2.4 10^3/uL (0.5-4.7) 07/09/20 05:50 Absolute Monos (auto) 1.1 10^3/uL (0.1-1.4) 07/09/20 05:50 Absolute Eos (auto) 0.1 10^3/uL (0.0-0.6) 07/09/20 05:50 Absolute Basos (auto) 0.1 10^3/uL (0.0-0.2) 07/09/20 05:50 Seg Neutrophils % 66.0 % (42-78) 07/09/20 05:50 ESR 107 mm/hr (0-20) H 07/09/20 05:50 Sodium 136.0 mmol/L (137-145) L 07/11/20 06:45 Potassium 5.5 mmol/L (3.6-5.0) H 07/11/20 06:45 Chloride 101 mmol/L (98-107) 07/11/20 06:45 Carbon Dioxide 28 mmol/L (22-30) 07/11/20 06:45 Anion Gap 7 (5-19) 07/11/20 06:45 BUN 24 mg/dL (7-20) H 07/11/20 06:45 Creatinine 2.28 mg/dL (0.52-1.25) H 07/11/20 06:45 Est GFR ( Amer) 35 (>60) L 07/11/20 06:45 Est GFR (MDRD) Non-Af 29 (>60) L 07/11/20 06:45 Glucose 79 mg/dL (75-110) 07/11/20 06:45 POC Glucose 135 mg/dL (70-110) H 07/09/20 11:46 Hemoglobin A1c % 9.2 % (4.7-6.0) H 07/06/20 05:07 Lactic Acid 1.1 mmol/L (0.7-2.1) 07/05/20 15:33 Calcium 9.0 mg/dL (8.4-10.2) 07/11/20 06:45 Phosphorus 3.3 mg/dL (2.5-4.5) 07/11/20 06:45 Total Bilirubin 0.5 mg/dL (0.2-1.3) 07/05/20 15:33 Direct Bilirubin 0.3 mg/dL (0.0-0.4) 07/05/20 15:33 Neonat Total Bilirubin Not Reportable 07/05/20 15:33 Neonat Direct Bilirubin Not Reportable 07/05/20 15:33 Neonat Indirect Bili Not Reportable 07/05/20 15:33 AST 23 U/L (17-59) 07/05/20 15:33 ALT 15 U/L (<50) 07/05/20 15:33 Alkaline Phosphatase 102 U/L (38-126) 07/05/20 15:33 C-Reactive Protein 29.0 mg/L (<10.0) H 07/11/20 06:45 Total Protein 7.6 g/dL (6.3-8.2) 07/05/20 15:33 Albumin 3.1 g/dL (3.5-5.0) L 07/11/20 06:45 Triglycerides 314 mg/dL (<150) H 07/10/20 05:14 Cholesterol 162.55 mg/dL (0-200) 07/10/20 05:14 LDL Cholesterol Direct 78 mg/dL (<100) 07/10/20 05:14 VLDL Cholesterol 62.8 mg/dL (10-31) H 07/10/20 05:14 HDL Cholesterol 19 mg/dL (>40) L 07/10/20 05:14 Time Trough Drawn 0935 07/09/20 09:35 Vancomycin Trough 13.1 ug/mL (5.0-20.0) 07/09/20 09:35 Impressions: Foot X-Ray 07/05/20 14:14 IMPRESSION: No acute osseous abnormality of the left foot. Lower Extremity MRI 07/07/20 00:00 IMPRESSION: 1. Subcutaneous interstitial fluid in the plantar calcaneal soft tissues with draining abscess to the skin surface. No focal drainable fluid collection. No evidence of osteomyelitis. 2. Thickening of the plantar fascia consistent with plantar fasciitis. 3. Reactive bone marrow edema in the calcaneus. Extremity Arterial Study 07/09/20 00:00 IMPRESSION: No focal hemodynamically significant stenosis left lower extremity. Plan Health Concerns: Heel abscess in a patient with diminished peripheral arterial circulation Plan of Treatment: The patient will complete antibiotic therapy with a week of Augmentin. Packing the abscess cavity with iodoform ribbon gauze will be extremely effective. Home health has been ordered as well as a Darco heel wedge shoe and a walker to help offload the left heel. Goals: Complete resolution of heel abscess. Further investigation and treatment of peripheral arterial disease Time Spent: Greater than 30 Minutes Stroke Is this a Stroke Patient?: No Acute Heart Failure Is this a Heart Failure Patient?: No
[2020-07-11] MEDS: VANCOMYCIN HCL 1,000 MG in DEXTROSE 5%-WATER 250 ML IV SCH (13:58)
== END 2020-07-11 14:50 | disposition home or self-care (01) | DRG 638 ==
LOC: ER 13:50 → EH 22:18 → 4S 23:14
PROVIDERS: ADMIT Student in an Organized Health Care Education/Training Program; ATTEND Hospitalist
PROC: 3E10X8Z Irrigation of Skin and Mucous Membranes using Irrigating Substance (ICD-10-PCS; 2020-07-05)
PROC: 0H9NXZZ Drainage of Left Foot Skin, External Approach (ICD-10-PCS; principal; 2020-07-08)
DX: E11.621 Type 2 diabetes mellitus with foot ulcer (principal); L97.429 Non-pressure chronic ulcer of left heel and midfoot with unspecified severity; L02.612 Cutaneous abscess of left foot; L03.116 Cellulitis of left lower limb; E11.51 Type 2 diabetes mellitus with diabetic peripheral angiopathy without gangrene; E11.65 Type 2 diabetes mellitus with hyperglycemia; E78.5 Hyperlipidemia, unspecified; I10 Essential (primary) hypertension; N17.9 Acute kidney failure, unspecified; Z79.4 Long term (current) use of insulin; Z85.46 Personal history of malignant neoplasm of prostate; M72.2 Plantar fascial fibromatosis; Z79.899 Other long term (current) drug therapy
CPT/HCPCS: 36415; 80048; 80053; 80061; 80069; 80202; 82962; 83036; 83605; 85025; 85027; 85652; 86140; 87040; 93926; 96374; 96375; 99285; J0692; J1644; J1815; J2020; J2405; J3370; J3490; J7030; J7060; J7120